=== PATIENT | male | born 1985 | race African-American/Black ===

== ENCOUNTER 2020-05-21 22:42 | Emergency (ER) | payer OTHER ==
[~2020-05-21] VITALS: Ht 190.5 cm; Wt 108.9 kg
[2020-05-21 23:58] VITALS: BP 163/98
== END 2020-05-22 00:05 | disposition home or self-care (01) ==
LOC: ER 22:42
DX: J02.9 Acute pharyngitis, unspecified (principal); Z20.828 Contact with and (suspected) exposure to other viral communicable diseases; R05 Cough; R09.3 Abnormal sputum

== ENCOUNTER 2020-08-08 09:11 | Emergency (ER) | payer BC ==
[~2020-08-08] VITALS: Ht 190.5 cm; Wt 104.3 kg
[2020-08-08 09:14] VITALS: BP 134/84
== END 2020-08-08 10:15 | disposition home or self-care (01) ==
LOC: ER 09:11
DX: M25.561 Pain in right knee (principal)